=== PATIENT | female | born 1955 | race Caucasian/White ===

== ENCOUNTER → 2017-06-11 | Outpatient (CLI) | payer OTHER ==
[~2017-06-11] MED LIST: CLB200 PO; OXYC5TAB PO; OXYSR10 PO; PARO1TAB27 PO
== END | disposition home or self-care (01) ==
LOC: C.LABMFLN 14:23
PROVIDERS: ATTEND Internal Medicine Cardiovascular Disease
DX: I25.10 Atherosclerotic heart disease of native coronary artery without angina pectoris (principal); E78.5 Hyperlipidemia, unspecified; R06.09 Other forms of dyspnea; R00.2 Palpitations; I25.5 Ischemic cardiomyopathy; R07.89 Other chest pain

== ENCOUNTER → 2017-06-28 | Outpatient (CLI) | payer OTHER ==
[~2017-06-28] MED LIST changes: +PERFLUTREN LIPID MICROSPHERE (DEFINITY) IV ONE; +REGADENOSON 0.4 MG/5 ML SYR ONE
--- NOTE | 2017-06-28 16:11 | ECHOCARDIOGRAM REPORT ---
*NOTICE TO RECEIVING [employer] [employer] This information is strictly Confidential and protected under [place] law. [place] law prohibits you from making any further disclosure of this information unless further disclosure is expressly permitted by the written consent of the person to whom it pertains or is authorized by law. A general authorization for the release of medical or other information is not sufficient for this purpose. Hospital accepts no responsibility if the information is made available to any other person, INCLUDING THE PATIENT. Interpretation Summary * Name: JAVIER PRINCE Study Date: 06/28/2017 02:20 PM BP: 104/66 mmHg * Patient Location: [facility] HR: 64 * : 1955 (M/d/yyyy) Gender: Female Height: 65 in * Age: 62 yrs Ethnicity: CA Weight: 202 lb * Ordering Physician: Jarret Barrera * Referring Physician: Jarret Barrera * Performed By: Marah Santiago RDCS * * Reason For Study: Atypical chest pain, CAD, FISH, ischemic cardiomyopathy, palpitations * BSA: 2.0 m2 * -- Conclusions -- * 1. Normal left ventricular size with mildly reduced systolic function. EF 45-50%. Hypokinesis of the basal lateral and basal inferolateral wall segments. Akinesis of the mid inferolateral and mid to distal lateral wall segments. No left ventricular hypertrophy. Type 2 diastolic dysfunction. * 2. No significant valvular abnormalities visualized. * 3. Technically difficult study, enhanced with IV Definity. * 4. No prior study available for comparison. Procedure Details * A complete two-dimensional transthoracic echocardiogram was performed (2D, M-mode, Doppler and color flow Doppler). * A contrast injection of Definity was performed to improve assessment of LV function. * Contrast was injected into an intravenous site in the left arm. * One vial of Definity ultrasound contrast was diluted in normal saline to a total volume of 10 ml. A total of '3' ml of solution was administered during imaging. * Lot # [id number] of Definity utilized for procedure. * Expiration date 1 JUN 24. * The attending nurse who injected the contrast agent was Dahiana Guerra RN. Left Ventricle * Normal left ventricular size with mildly reduced systolic function. EF 45-50%. Hypokinesis of the basal lateral and basal inferolateral wall segments. Akinesis of the mid inferolateral and mid to distal lateral wall segments. No left ventricular hypertrophy. Type 2 diastolic dysfunction. Right Ventricle * The right ventricle is normal in size and function. * The right ventricular systolic function is normal as assessed by tricuspid annular plane systolic excursion (TAPSE) (normal >1.5 cm). Atria * The left atrial size is normal. * Right atrial size is normal. * There is no evidence of atrial septal defect, but resolution does not allow assessment for a patent foramen ovale. Mitral Valve * The mitral valve is grossly normal. * There is no mitral valve stenosis. * There is trace mitral regurgitation. Tricuspid Valve * The tricuspid valve is not well visualized, but is grossly normal. * There is no tricuspid stenosis. * Significant tricuspid regurgitation is absent. Aortic Valve * The aortic valve is trileaflet. * No hemodynamically significant valvular aortic stenosis. * No aortic regurgitation is present. Pulmonic Valve * The pulmonary valve is inadequately visualized, but the Doppler data is adequate for interpretation. * There is no pulmonic valvular stenosis. * There is no significant pulmonary regurgitation. Great Vessels * The aortic root is normal size. * Ascending aorta of normal dimension Pericardium/Pleural * There is no pericardial effusion. Great Vessels * Normal inferior vena cava size and collapsability with sniff indicates a normal right atrial pressure of 3 mmHg MMode 2D Measurements and Calculations IVSd 0.87 cm LVIDd 4.6 cm LVIDs 3.7 cm LVPWd 0.91 cm IVS/LVPW 0.96 FS 19.3 % EDV(Teich) 95.0 ml ESV(Teich) 57.1 ml EF(Teich) 39.9 % EDV(cubed) 94.4 ml ESV(cubed) 49.6 ml EF(cubed) 47.5 % LV mass(C)d 133.0 grams LV mass(C)dI 67.0 grams/m\S\2 SV(Teich) 37.9 ml SI(Teich) 19.1 ml/m\S\2 SV(cubed) 44.8 ml SI(cubed) 22.6 ml/m\S\2 Ao root diam 2.8 cm Ao root area 6.0 cm\S\2 LA dimension 3.0 cm asc Aorta Diam 2.5 cm LA/Ao 1.1 LVOT diam 2.0 cm LVOT area 3.1 cm\S\2 LVAd ap4 29.6 cm\S\2 LVLd ap4 7.8 cm EDV(MOD-sp4) 92.3 ml EDV(sp4-el) 96.0 ml LVAs ap4 20.3 cm\S\2 LVLs ap4 6.8 cm ESV(MOD-sp4) 51.6 ml ESV(sp4-el) 51.8 ml EF(MOD-sp4) 44.0 % EF(sp4-el) 46.0 % LVAd ap2 29.0 cm\S\2 LVLd ap2 7.4 cm EDV(MOD-sp2) 91.3 ml EDV(sp2-el) 96.3 ml LVAs ap2 17.3 cm\S\2 LVLs ap2 6.4 cm ESV(MOD-sp2) 38.8 ml ESV(sp2-el) 39.8 ml EF(MOD-sp2) 57.5 % EF(sp2-el) 58.7 % LVLd %diff -5.03 % EDV(MOD-bp) 91.8 ml LVLs %diff -5.76 % ESV(MOD-bp) 44.9 ml EF(MOD-bp) 51.1 % SV(MOD-sp4) 40.6 ml SI(MOD-sp4) 20.5 ml/m\S\2 SV(MOD-sp2) 52.5 ml SI(MOD-sp2) 26.4 ml/m\S\2 SV(MOD-bp) 46.9 ml SI(MOD-bp) 23.6 ml/m\S\2 SV(sp4-el) 44.1 ml SI(sp4-el) 22.2 ml/m\S\2 SV(sp2-el) 56.5 ml SI(sp2-el) 28.5 ml/m\S\2 Doppler Measurements and Calculations MV E max monique 86.8 cm/sec MV A max monique 84.9 cm/sec MV E/A 1.0 MV dec time 0.17 sec Ao V2 max 148.0 cm/sec Ao max PG 8.8 mmHg Ao max PG (full) 5.1 mmHg PUSHPA(V,A) 2.0 cm\S\2 PUSHPA(V,D) 2.0 cm\S\2 LV V1 max PG 3.7 mmHg LV V1 max 96.0 cm/sec PA V2 max 97.7 cm/sec PA max PG 3.8 mmHg PA acc slope 661.2 cm/sec\S\2 PA acc time 0.09 sec PA pr(Accel) 39.4 mmHg
--- NOTE | 2017-06-28 17:13 | Myocardial Perfusion Study ---
Myocardial Perfusion Study Rpt Myocardial Perfusion Study Rpt Date of Service 06/28/2017 Myocardial Perfusion Study Rpt Procedure: 1. Myocardial perfusion study performed in multiple views/images 2. Lexiscan pharmacologic stress ECG Indications: 1. Chest pain 2. CAD 3. Dyspnea with exertion 4. Ischemic cardiomyopathy Consent: Informed written consent was obtained prior to the procedure. Ordering physician: Dr. Barrera Procedural details: For the stress portion of the study, Lexiscan 0.4 mg was intravenously administered followed by a saline flush. This was followed by 33.3 mCi of technetium 99m Cardiolite, injected at 1:20 p.m. on 06/28/2017. 30 minutes following the injection, imaging of the heart was performed in multiple projections. For the rest portion of the study, 9.8 mCi technetium 99m Cardiolite was injected intravenously at 11:40 a.m. on 06/28/2017. 1 hour following the injection, imaging of the heart was performed in the same projections. Lexiscan stress ECG: Resting ECG demonstrated: Sinus rhythm at 64 bpm. Low voltage. Possible inferolateral infarct. Maximum heart rate: 96 bpm Resting blood pressure: 104/66 mmHg Maximum blood pressure: 104/66 mmHg Maximal, age-predicted heart rate: 60 % Significant ST changes: None Arrhythmia: None Symptoms: Chest heaviness, nausea, fatigue Findings: Rotating raw imaging demonstrated no significant lung uptake. There is no significant motion artifact. Heart size appeared normal. Myocardial perfusion demonstrated a small area of severely reduced uptake involving the base to distal inferolateral and base to mid lateral wall segments, which appeared fixed in post stress and rest imaging without significant reversibility. Other wall segments appear to have normal myocardial perfusion. Ejection fraction: 47 % Wall motion: Akinesis involving the base to distal inferolateral and base to mid lateral wall segments. Otherwise normal wall motion. No significant transient ischemic dilation. Impression: 1. No ischemic changes suggested on myocardial perfusion study. 2. Circumflex territory infarct. 3. Akinesis of the base to distal inferolateral and base to mid lateral wall segments. 4. Mildly reduced LV systolic function. EF 47%. 5. Chest heaviness reported. 6. Nondiagnostic Lexiscan ECG.
== END | disposition home or self-care (01) ==
LOC: C.NUCL 10:44
PROVIDERS: ATTEND Internal Medicine Cardiovascular Disease
DX: R07.89 Other chest pain (principal); I25.10 Atherosclerotic heart disease of native coronary artery without angina pectoris; R06.09 Other forms of dyspnea; E78.5 Hyperlipidemia, unspecified; I25.5 Ischemic cardiomyopathy; R00.2 Palpitations

== ENCOUNTER 2017-08-15 09:14 | Inpatient (IN) | payer OTHER ==
[2017-08-01 11:04] VITALS: BMI 33.0
--- NOTE | 2017-08-01 11:39 | PAT Medication Instructions ---
Service Date Aug 01, 2017. Current Home Medication List Acetaminophen (Tylenol), 1,000 MG PO QD PRN for Pain Aspirin (Aspirin Ec), 81 MG PO QAM Atorvastatin (Lipitor), 80 MG PO QPM Carvedilol (Coreg), 1 TAB PO BID Nitroglycerin (Nitrostat), 0.4 MG UT PRN Paroxetine (Paxil), 20 MG PO QAM Medication Instructions For Your Scheduled Surgery - Take the following medications the morning of surgery with a sip of water: Paroxetine (Paxil), 20 MG PO QAM Carvedilol (Coreg), 1 TAB PO BID Nitroglycerin (Nitrostat), 0.4 MG UT PRN (if needed) Aspirin (Aspirin Ec), 81 MG PO QAM Acetaminophen (Tylenol), 1,000 MG PO QD PRN for Pain (okay to take up to 4 hours prior to surgery if needed) - Take the following medications as scheduled the night before surgery: Carvedilol (Coreg), 1 TAB PO BID Nitroglycerin (Nitrostat), 0.4 MG UT PRN (if needed) Atorvastatin (Lipitor), 80 MG PO QPM Acetaminophen (Tylenol), 1,000 MG PO QD PRN for Pain (if needed) If you have any questions please call us at [phone] or [phone] or [phone]
--- NOTE | 2017-08-01 12:28 | DIAGNOSTIC IMAGING REPORT ---
TWO VIEW CHEST CLINICAL HISTORY: Preoperative examination. FINDINGS: PA and lateral chest radiographs are compared to study dated 05/05/2015. The PA view is degraded by patient rotation. The cardiomediastinal silhouette is unremarkable. There is atherosclerotic calcification of the thoracic aorta. The lungs and pleural spaces are clear. There is no pneumothorax. The skeletal structures are osteopenic. Degenerative change is noted in the thoracic spine. Fusion hardware is partially imaged in the lumbar spine. A left shoulder arthroplasty is in place. IMPRESSION: No active disease in the chest. Electronically signed by: Chiki Mccray M.D. 08/01/2017 12:27 PM Dictated Date/Time: 08/01/2017 12:26 PM
[2017-08-01 12:34] LABS: BASO % 0.5 %; BASO ABS # 0.03 K/uL (0-0.2); EOS % 1.6 %; HEMATOCRIT 43.6 % (37-47); IG# 0.01 K/uL (0.00-0.02); LYMPH % 30.6 %; LYMPH ABS # 1.87 K/uL (1.2-3.4); MEAN CELL VOLUME 83.8 fL (80-100); MEAN CORPUSCULAR HEMOGLOBIN 28.8 pg (25-34); MEAN CORPUSCULAR HGB CONC 34.4 g/dl (32-36); MONO % 7.5 %; MONO ABS # 0.46 K/uL (0.11-0.59); NEUT % 59.6 %; NEUT ABS # 3.65 K/uL (1.4-6.5); PLATELET COUNT 289 K/uL (130-400); RED CELL DISTRIBUTION WIDTH CV 14.5 % (11.5-14.5); RED CELL DISTRIBUTION WIDTH SD 44.6 fL (36.4-46.3); WHITE BLOOD COUNT 6.12 K/uL (4.8-10.8)
[2017-08-01 12:44] LABS: PTT PATIENT 28.5 SECONDS (21.0-31.0)
[2017-08-01 12:50] LABS: HEMOGLOBIN A1C 5.8 % (4.5-5.6)
[2017-08-01 13:39] LABS: ALBUMIN 4.2 gm/dl (3.4-5.0); CALCIUM 9.4 mg/dl (8.5-10.1); CREATININE 0.81 mg/dl (0.60-1.20); POTASSIUM 4.5 mmol/L (3.5-5.1)
--- NOTE | 2017-08-14 12:28 | HISTORY & PHYSICAL EXAMINATION ---
DATE OF ADMISSION: 08/14/2017 CHIEF COMPLAINT: Left knee pain. HISTORY OF PRESENT ILLNESS: Patient is a 62-year-old female with known severe osteoarthritis about her left knee. She takes Tylenol daily for pain. She has to watch her anti-inflammatory use due to cardiac history. She has pain with activities of daily living. She has pain with prolonged weightbearing and standing activities. She has difficulty with any kneeling, bending, or squatting activities. Due to ongoing pain and disability, she now desires to proceed with left total knee arthroplasty. PAST MEDICAL HISTORY: Coronary artery disease status post MO and cardiac stent placement, hypertension, hypercholesterolemia. PAST SURGICAL HISTORY: , hip replacement, back surgery, shoulder replacement. MEDICATIONS: Paxil 20 mg daily, carvedilol 1 tablet p.o. b.i.d., nitroglycerin 0.4 mg sublingual p.r.n., aspirin 81 mg daily, acetaminophen 1000 mg p.r.n. pain, Lipitor 80 mg q.p.m. ALLERGIES: AMOXICILLIN CAUSES A RASH. SOCIAL HISTORY AND REVIEW OF SYSTEMS: Noncontributory. PHYSICAL EXAMINATION: GENERAL: Well-nourished, well-developed elderly female who appears stated age. HEENT: Normocephalic, atraumatic, extraocular movements intact, oropharynx pink and moist. NECK: Supple without adenopathy. LUNGS: Clear to auscultation bilaterally. HEART: Regular rate and rhythm. ABDOMEN: Soft, nontender, nondistended. EXTREMITIES: The upper extremities are within normal limits. Left knee has a varus alignment. Range of motion from 0-125 degrees. She complains primarily of medial compartment pain. X-RAYS: X-rays were reviewed. She has a varus aligned knee. She has [id number] arthritis of the medial compartment with complete loss of joint space. There are medial osteophytes. She has [id number] degenerative change about the patellofemoral joint with osteophytes. ASSESSMENT: Left knee degenerative joint disease. PLAN: Risks versus benefits were discussed. Consent was obtained. Patient's primary care physician is Dr. Gilmar Fonseca. Her consumer relations specialist is Dr. Barrera. We will proceed with left total knee arthroplasty as indicated.
[2017-08-15] VITALS (10 sets, daily range): BP systolic 99–118; BP diastolic 64–81; PULSE 61–85; TEMP 36.3–36.7; O2SAT 92–99; Ht 165.1 cm; Wt 92.2 kg
[~2017-08-15] VITALS: Ht 165.1 cm; Wt 92.2 kg
[2017-08-15] MEDS: TRANEXAMIC ACID INJ 1,000 MG x 2 Bags IV SCH ×4 (06:00→06:30)
--- NOTE | 2017-08-15 07:22 | History & Physical Bridge Note ---
H&P Re-Evaluation Bridge Note: I have examined the patient, reviewed the History & Physical and in the interval since the performance of the History & Physical I have noted the following changes of clinical significance: No changes noted
[~2017-08-15 09:14] MED LIST changes: +ACET-1256 PO; +ACETAMINOPHEN 500 MG TAB PO SCH; +ASPI81TA28 PO; +ATOR-26 PO; +BUPIVACAINE 0.25% 30 ML VIAL ONE; +BUPIVACAINE 0.5 % 5 MG/1 ML PF 10ML VIAL ONE; +CARV3.122 PO; -CLB200 PO; +CeleBREX 200 MG CAP PO SCH; +DEXAMETHASONE 4 MG TAB PO SCH; +FAMOTIDINE 20 MG TAB PO SCH; +GABAPENTIN 600 MG PO SCH; +LACTATED RINGER'S 1000ML 1,000 ML IV SCH; +LACTATED RINGER'S 1000ML 500 ML IV SCH; +METOCLOPRAMIDE HCL 10 MG TAB PO SCH; +NTRGSL/4 UT; -OXYC5TAB PO; -OXYSR10 PO; -PERFLUTREN LIPID MICROSPHERE (DEFINITY) IV ONE; -REGADENOSON 0.4 MG/5 ML SYR ONE; +ROPIVACAINE 5MG/ML 30 ML 150 MG, BUPIVACAINE 0.5% MPF INJ 30 ML, EpINEphrine HCL INJ 0.... INFIL SCH; +VANCOMYCIN IV 1,500 MG in SODIUM CHLORIDE 0.9% 500ML 500 ML IV SCH
[2017-08-15] MEDS ORDERED: LIDOCAINE HCL 2% 2 ML VIAL (20MG/ML) ONE (09:51)
[2017-08-15] MEDS ORDERED: PROPOFOL IV EMULSION 10 MG/ML 20 ML VIAL IV ONE ×2 (09:51→10:20)
[2017-08-15] MEDS ORDERED: MIDAZOLAM HCL 1 MG/ML 2ML VIAL ONE (09:52)
[2017-08-15] MEDS ORDERED: POVIDONE-IODINE OP SOLN 30 ML BTL ONE (10:58)
[2017-08-15] MEDS ORDERED: ORTHO JOINT ANESTHETIC ONE (10:58)
[2017-08-15] MEDS ORDERED: BACITRACIN 50000 UNIT VIAL ONE (10:58)
[2017-08-15] MEDS ORDERED: ATROPINE SULFATE 0.1 MG/ML 5ML SYR IV PRN (11:45)
[2017-08-15] MEDS ORDERED: PHENYLEPHRINE 100MCG/ML 5ML SYR IV PRN (11:45)
[2017-08-15] MEDS ORDERED: HYDROmorphone INJ 2 MG/ML SYR/VIAL IV PRN (11:45)
[2017-08-15] MEDS ORDERED: KETOROLAC TROMETHAMINE 30 MG/ML VIAL IV. PRN (11:45)
[2017-08-15] MEDS ORDERED: EpHEDrine SULFATE INJ 50 MG/ML AMP IV PRN (11:45)
[2017-08-15] MEDS ORDERED: ONDANSETRON INJ 2 MG/ML 2 ML VIAL IV PRN ×2 (11:45→13:15)
--- NOTE | 2017-08-15 12:31 | [facility] Post Operative Brief Note ---
Immediate Operative Summary Operative Date Aug 15, 2017. Pre-Operative Diagnosis Left knee degenerative joint disease Post-Operative Diagnosis Left knee degenerative joint disease Procedure(s) Performed Left total knee arthroplasty Surgeon Dr. Yoni Busch Digital Ad Trafficker Surgeon(s) Meir Campa PA-C Estimated Blood Loss 10cc Findings Consistent with Post-Op Diagnosis Specimens A. Left knee bone and tissue Anesthesia Type MAC Spinal Regional Complication(s) none Disposition Accompanied Pt To Recover: no Disposition: Recovery Room / PACU
[2017-08-15] MEDS ORDERED: ALUMINUM/MAGNESIUM/SIMETH (MAALOX MAX) 30 ML UDC PO PRN (13:15)
[2017-08-15] MEDS ORDERED: MAGNESIUM HYDROXIDE SUSP 30 ML UDC PO PRN (13:15)
[2017-08-15] MEDS ORDERED: ZOLPIDEM TARTRATE 5 MG TAB PO PRN (13:15)
[2017-08-15] MEDS ORDERED: METOCLOPRAMIDE HCL INJ 5 MG/ML 2 ML VIAL IV PRN (13:15)
[2017-08-15] MEDS ORDERED: VANCOMYCIN CONSULT ACTIVE PRN (13:15)
[2017-08-15] MEDS ORDERED: NITROGLYCERIN 0.4 MG SL PER TAB CHARGE UT SCH (13:15)
[2017-08-15] MEDS ORDERED: MoRPHine SULFATE 4 MG/ML 1 ML CARP\\VIAL IV PRN (13:15)
--- NOTE | 2017-08-15 13:51 | DIAGNOSTIC IMAGING REPORT ---
L KNEE 1 OR 2 VIEWS ROUTINE HISTORY: 62 years-old Female AP/LATERAL IN PACU LEFT KNEE status post left knee total joint arthroplasty. Degenerative joint disease. COMPARISON: None available TECHNIQUE: 2 views of the left knee FINDINGS: Postoperative changes from recent left knee total joint arthroplasty with patellar resurfacing. Expected postsurgical soft tissue swelling and deep tissue air about the left knee with surgical drain in place. Alignment is satisfactory without periprosthetic fracture or retained foreign body. IMPRESSION: Left knee total joint arthroplasty and patellar resurfacing without complication identified. The above report was generated using voice recognition software. It may contain grammatical, syntax or spelling errors. Electronically signed by: Godfrey Pagan M.D. 08/15/2017 1:50 PM Dictated Date/Time: 08/15/2017 1:48 PM
--- NOTE | 2017-08-15 14:14 | Anesthesiology Progress Note ---
Anesthesia Post Op Note Date & Time Aug 15, 2017 at 14:14 Vital Signs Pain Intensity: 0 Vital Signs Past 12 Hours Date Time Temp Pulse Resp B/P (MAP) Pulse Ox O2 Delivery O2 Flow Rate FiO2 08/15/17 14:09 69 16 08/15/17 14:09 69 16 94 08/15/17 14:06 36.5 67 16 111/72 (77) 96 Room Air 08/15/17 14:05 102/83 08/15/17 14:04 68 12 08/15/17 14:04 68 12 96 08/15/17 14:00 104/76 08/15/17 13:59 68 12 08/15/17 13:59 67 12 96 08/15/17 13:55 113/75 08/15/17 13:54 65 12 08/15/17 13:54 65 12 96 08/15/17 13:50 106/80 08/15/17 13:49 62 9 100 08/15/17 13:49 63 9 08/15/17 13:45 106/77 08/15/17 13:44 62 15 08/15/17 13:44 62 15 97 08/15/17 13:40 114/79 08/15/17 13:39 64 13 08/15/17 13:39 65 13 98 08/15/17 13:38 62 12 100 08/15/17 13:38 64 12 08/15/17 13:36 109/82 08/15/17 13:33 66 14 97 08/15/17 13:33 66 14 08/15/17 13:30 108/80 08/15/17 13:28 66 10 08/15/17 13:28 66 10 100 08/15/17 13:27 64 14 08/15/17 13:27 65 14 98 08/15/17 13:26 114/78 08/15/17 13:25 65 12 97 08/15/17 13:25 64 12 08/15/17 13:21 117/79 08/15/17 13:20 64 12 08/15/17 13:20 64 12 97 08/15/17 13:16 117/75 08/15/17 13:15 64 12 98 08/15/17 13:15 64 12 08/15/17 13:11 115/82 08/15/17 13:10 64 11 99 08/15/17 13:10 63 11 08/15/17 13:05 67 16 08/15/17 13:05 66 16 118/79 98 08/15/17 13:05 36.2 65 16 118/79 (86) 98 Room Air 08/15/17 09:53 36.4 66 18 107/79 97 Room Air Notes Mental Status: alert / awake / arousable, participated in evaluation Pt Amnestic to Procedure: Yes Nausea / Vomiting: adequately controlled Pain: adequately controlled Airway Patency, RR, SpO2: stable & adequate BP & HR: stable & adequate Hydration State: stable & adequate Anesthetic Complications: no major complications apparent
--- NOTE | 2017-08-15 15:30 | Medical Consult ---
Consultation Date of Consultation: Aug 15, 2017. Attending Physician: Yoni Busch M.D. Reason for Consultation: Postop medical management History of Present Illness 62-year-old female who is status post left TKA today by Dr. Busch. Postoperatively the patient is doing well. She reports her pain is well controlled. She reports numbness to the bilateral lower extremities postoperatively. She denies chest pain, palpitations, and shortness of breath. No lightheadedness or dizziness. She denies abdominal pain and nausea. She has not voided since surgery. Past Medical/Surgical History Medical Problems: (1) CAD (coronary artery disease) Permanent Comment: 05/2016-STEMI, circumflex stent 2, proximal RCA stent 2, distal RCA stent 1 Status: Chronic (2) Diastolic dysfunction Permanent Comment: Grade 2 per echo 06/2017 Status: Chronic (3) Ischemic cardiomyopathy Permanent Comment: Echo 06/2017 EF 45-50% Status: Chronic Surgical Problems: (1) H/O hemorrhoidectomy Status: Chronic (2) History of shoulder surgery Permanent Comment: Left Status: Chronic (3) History of total right hip replacement Status: Chronic (4) S/P foot surgery, right Status: Chronic (5) S/P lumbar fusion Status: Chronic Family History FH: CAD (coronary artery disease) FATHER Social History Smoking Status: Never Smoker Alcohol Use: none Allergies Coded Allergies: Amoxicillin (Verified Allergy, Mild, RASH, 08/15/17) Lisinopril (Unverified Adverse Reaction, Unknown, HYPOTENSION, 08/15/17) PER CARDIO RECORDS Home Medications Tylenol (Acetaminophen) 500 Mg Tab 1,000 Mg PO QD PRN Lipitor (Atorvastatin Calcium) 80 Mg Tab 80 Mg PO QPM Nitrostat (Nitroglycerin) 0.4 Mg Tab 0.4 Mg UT PRN Coreg (Carvedilol) 3.125 Mg Tab 1 Tab PO BID 30 Days Paxil (Paroxetine HCl) 20 Mg Tab 20 Mg PO QAM Aspirin Ec (Aspirin) 81 Mg Tab 81 Mg PO QAM Current Inpatient Medications Current Inpatient Medications Medications (Trade) Dose Ordered Sig/Anam Route Start Time Stop Time Status Last Admin Dose Admin Ondansetron HCl (Zofran Inj) 4 mg ONE PRN IV 08/15/17 11:45 08/15/17 18:00 Atropine Sulfate (Atropine Sulfate 0.1mg/ml Inj) 0.5 mg Q1M PRN IV 08/15/17 11:45 08/15/17 18:00 Ephedrine Sulfate (EpHEDrine SULFATE INJ) 5 mg Q5M PRN IV 08/15/17 11:45 08/15/17 18:00 Ketorolac Tromethamine (Toradol Inj) 30 mg ONE PRN IV. 08/15/17 11:45 08/15/17 18:00 Hydromorphone HCl (Dilaudid Inj) 0.25 mg Q5M PRN IV 08/15/17 11:45 08/15/17 18:00 Phenylephrine HCl (Jeffrey-Synephrine 500MCG/5ML Syr) 100 mcg Q5M PRN IV 08/15/17 11:45 08/15/17 18:00 Potassium Chloride/Dextrose/ Sod Cl 1,000 ml @ 100 mls/hr Q10H IV 08/15/17 15:30 08/16/17 13:02 Vancomycin HCl 1500 mg/Sodium Chloride 530 ml @ 200 mls/hr Q12H IV 08/15/17 22:00 08/16/17 00:38 Ketorolac Tromethamine (Toradol Inj) 30 mg Q6H IV. 08/15/17 16:00 08/16/17 13:14 Oxycodone HCl (Roxicodone Immediate Rel Tab) 1 TABLET FOR PAIN RATING... Q4H PRN PO 08/15/17 13:15 08/29/17 13:14 Morphine Sulfate (MoRPHine SULFATE INJ) For pain rating 1-5 give 2... Q2HWA PRN IV 08/15/17 13:15 08/29/17 13:14 Acetaminophen (Tylenol Tab) 1,000 mg Q8 PO 08/15/17 16:00 09/14/17 15:59 Magnesium Hydroxide (Milk Of Magnesia Susp) 30 ml Q6H PRN PO 08/15/17 13:15 09/14/17 13:14 Docusate Sodium (coLACE CAP) 100 mg BID PO 08/15/17 21:00 09/14/17 20:59 Diphenhydramine HCl (Benadryl Cap) 25 mg Q8H PRN PO 08/15/17 13:15 09/14/17 13:14 Al Hydrox/Mg Hydrox/Simethicone (Maalox Max Susp) 15 ml Q4H PRN PO 08/15/17 13:15 09/14/17 13:14 Zolpidem Tartrate (Ambien Tab) 5 mg HSZ PRN PO 08/15/17 13:15 09/14/17 13:14 Multivitamins (Multivitamin Tab) 1 tab QAM PO 08/16/17 09:00 09/15/17 08:59 Ondansetron HCl (Zofran Inj) 4 mg Q6H PRN IV 08/15/17 13:15 09/14/17 13:14 Metoclopramide HCl (Reglan Inj) 10 mg Q6H PRN IV 08/15/17 13:15 09/14/17 13:14 Ferrous Gluconate (Ferrous Gluconate Tab) 324 mg TIDM PO 08/15/17 17:45 09/14/17 17:59 Pantoprazole Sodium (Protonix Tab) 40 mg QAM PO 08/16/17 09:00 08/19/17 09:01 Dexamethasone Sodium Phosphate 10 mg/Syringe 2.5 ml @ 1 mls/min TODAY@0730 IV 08/16/17 07:30 08/16/17 07:33 Aspirin (Ecotrin Tab) 81 mg BID PO 08/15/17 21:00 09/14/17 20:59 Atorvastatin Calcium (Lipitor Tab) 80 mg QPM PO 08/15/17 21:00 09/14/17 20:59 Carvedilol (Coreg Tab) 3.125 mg BID PO 08/15/17 21:00 09/14/17 20:59 Nitroglycerin (Nitrostat Tab) 0.4 mg PRN UT 08/15/17 13:15 09/14/17 13:14 Paroxetine HCl (pAXil TAB) 20 mg QAM PO 08/16/17 09:00 09/15/17 08:59 Review of Systems ROS per HPI, all other systems reviewed and negative Physical Exam Date Time Temp Pulse Resp B/P (MAP) Pulse Ox O2 Delivery O2 Flow Rate FiO2 08/15/17 14:31 99 Room Air 08/15/17 14:30 99 Room Air 08/15/17 14:27 36.3 65 16 106/73 (84) 99 Room Air 08/15/17 14:09 69 16 08/15/17 14:09 69 16 94 08/15/17 14:06 36.5 67 16 111/72 (77) 96 Room Air 08/15/17 14:05 102/83 08/15/17 14:04 68 12 08/15/17 14:04 68 12 96 08/15/17 14:00 104/76 08/15/17 13:59 68 12 08/15/17 13:59 67 12 96 08/15/17 13:55 113/75 08/15/17 13:54 65 12 08/15/17 13:54 65 12 96 08/15/17 13:50 106/80 08/15/17 13:49 62 9 100 08/15/17 13:49 63 9 08/15/17 13:45 106/77 08/15/17 13:44 62 15 08/15/17 13:44 62 15 97 08/15/17 13:40 114/79 08/15/17 13:39 64 13 08/15/17 13:39 65 13 98 08/15/17 13:38 62 12 100 08/15/17 13:38 64 12 08/15/17 13:36 109/82 08/15/17 13:33 66 14 97 08/15/17 13:33 66 14 08/15/17 13:30 108/80 08/15/17 13:28 66 10 08/15/17 13:28 66 10 100 08/15/17 13:27 64 14 08/15/17 13:27 65 14 98 08/15/17 13:26 114/78 08/15/17 13:25 65 12 97 08/15/17 13:25 64 12 08/15/17 13:21 117/79 08/15/17 13:20 64 12 08/15/17 13:20 64 12 97 08/15/17 13:16 117/75 08/15/17 13:15 64 12 98 08/15/17 13:15 64 12 08/15/17 13:11 115/82 08/15/17 13:10 64 11 99 08/15/17 13:10 63 11 08/15/17 13:05 67 16 08/15/17 13:05 66 16 118/79 98 08/15/17 13:05 36.2 65 16 118/79 (86) 98 Room Air 08/15/17 09:53 36.4 66 18 107/79 97 Room Air General Appearance: WD/WN, no apparent distress Head: normocephalic, atraumatic Eyes: normal inspection, EOMI, sclerae normal ENT: hearing grossly normal, + pertinent finding (Mucous membranes moist) Neck: supple, no JVD, trachea midline Respiratory/Chest: lungs clear, normal breath sounds, no respiratory distress Cardiovascular: regular rate, rhythm, no edema, normal peripheral pulses Abdomen/GI: normal bowel sounds, non tender, soft, no organomegaly Extremities/Musculoskelatal: + pertinent finding (S/P left knee surgery, surgical dressing dry and intact, drain in place draining bloody drainage, circulation intact to the left lower extremity however sensory and motion still impaired from anesthesia) Neurologic/Psych: no motor/sensory deficits, alert, normal mood/affect, oriented x 3 Skin: normal color, warm/dry Assessment & Plan S/P LEFT TKA - POD#0 - activity and wound care orders as per ortho - pain control with bowel regimen - PT/OT - monitor H/H for acute blood loss anemia and transfuse blood products PRN - EBL 10 cc HISTORY OF CORONARY ARTERY DISEASE -History of STEMI 05/2016 -Currently stable -Continue aspirin, statin, beta-millie ISCHEMIC CARDIOMYOPATHY, DIASTOLIC DYSFUNCTION -EF 45-50%, grade 2 diastolic dysfunction -Not on routine diuretics -Monitor volume status closely DVT PROPHYLAXIS -Aspirin 81 mg twice daily as per orthopedics Attending addendum: The patient was seen and examined in presence of the . She has history of cardiomyopathy and CAD, status post left knee replacement. Complains to have numbness mainly left lower extremity but no other symptoms Denies any chest pain, palpitation, shortness of breath, nausea, vomiting, urinary symptoms. On examination Minimal distress at rest due to left lower extremity numbness and pain Hemodynamically stable Chest clear to auscultate bilaterally Heart S1-S2, no murmur appreciated Abdomen-benign, soft, nontender, bowel sounds present Extremity-trace edema on left Labs and imaging studies including EKG are reviewed Agree with assessment and plan as mentioned above. Dr. Alvin Mills
[2017-08-15] MEDS: D5W AND 1/2NSS + 20MEQ KCL 1,000 ML IV SCH (15:38)
[2017-08-15] MEDS: KETOROLAC TROMETHAMINE 30 MG/ML VIAL IV. SCH ×2 (16:38→21:31)
[2017-08-15] MEDS: ACETAMINOPHEN 500 MG TAB PO SCH ×2 (16:38→21:31)
[2017-08-15] MEDS: FERROUS GLUCONATE 324 MG TAB PO SCH (17:52)
[2017-08-15] MEDS: ASPIRIN 81 MG ECTAB PO SCH (21:23)
[2017-08-15] MEDS: CARVEDILOL 3.125 MG TAB PO SCH (21:23)
[2017-08-15] MEDS: DOCUSATE SODIUM 100 MG CAP PO SCH (21:23)
[2017-08-15] MEDS: ATORVASTATIN 40 MG TAB PO SCH (21:24)
[2017-08-15] MEDS ORDERED: VANCOMYCIN IV 1,500 MG in SODIUM CHLORIDE 0.9% 500ML 500 ML IV SCH (22:00)
[2017-08-16] MEDS: D5W AND 1/2NSS + 20MEQ KCL 1,000 ML IV SCH (01:32)
[2017-08-16 03:34] VITALS: BP 111/71; PULSE 71; TEMP 36.5; O2SAT 96
[2017-08-16] MEDS: KETOROLAC TROMETHAMINE 30 MG/ML VIAL IV. SCH ×2 (03:48→09:05)
[2017-08-16] MEDS: ACETAMINOPHEN 500 MG TAB PO SCH ×3 (05:40→21:35)
[2017-08-16 06:15] LABS: HEMATOCRIT 34.8 % (37-47); HEMOGLOBIN 11.9 g/dL (12.0-16.0); MEAN CELL VOLUME 83.3 fL (80-100); MEAN CORPUSCULAR HEMOGLOBIN 28.5 pg (25-34); MEAN CORPUSCULAR HGB CONC 34.2 g/dl (32-36); MEAN PLATELET VOLUME 9.2 fL (7.4-10.4); PLATELET COUNT 233 K/uL (130-400); RED CELL DISTRIBUTION WIDTH CV 14.1 % (11.5-14.5); RED CELL DISTRIBUTION WIDTH SD 43.1 fL (36.4-46.3); WHITE BLOOD COUNT 11.96 K/uL (4.8-10.8)
[2017-08-16 06:45] LABS: CALCIUM 8.3 mg/dl (8.5-10.1); CREATININE 0.89 mg/dl (0.60-1.20); POTASSIUM 4.3 mmol/L (3.5-5.1)
[2017-08-16 07:07] VITALS: BP 129/84; PULSE 69; TEMP 36.4; O2SAT 98
[2017-08-16] MEDS ORDERED: DEXAMETHASONE INJ 10 MG in SYRINGE 0 ML IV SCH (07:30)
--- NOTE | 2017-08-16 07:39 | Orthopedic Progress Note ---
Orthopedic Progress Note Date of Service Aug 16, 2017. Subjective Post OP Day: 1 Reports: feeling well Objective dressing C/D/I (Hemovac d/c'd) Pt with no active motion left ankle, toes/foot numb Date Time Temp Pulse Resp B/P (MAP) Pulse Ox O2 Delivery O2 Flow Rate FiO2 08/16/17 07:07 36.4 69 17 129/84 (99) 98 Room Air 08/16/17 03:34 36.5 71 16 111/71 (84) 96 Room Air 08/16/17 00:15 Room Air 08/15/17 23:06 36.7 72 16 103/68 (80) 92 Room Air 08/15/17 21:20 85 16 108/70 (83) 95 Room Air 08/15/17 19:35 36.6 79 16 99/64 (76) 93 Room Air 08/15/17 17:09 36.5 68 16 101/69 (80) 95 Room Air 08/15/17 15:58 36.3 62 16 114/79 (91) 96 Room Air 08/15/17 15:43 Room Air 08/15/17 15:29 36.4 61 16 118/81 (93) 98 Room Air 08/15/17 14:31 99 Room Air 08/15/17 14:30 99 Room Air 08/15/17 14:27 36.3 65 16 106/73 (84) 99 Room Air 08/15/17 14:09 69 16 08/15/17 14:09 69 16 94 08/15/17 14:06 36.5 67 16 111/72 (77) 96 Room Air 08/15/17 14:05 102/83 08/15/17 14:04 68 12 08/15/17 14:04 68 12 96 08/15/17 14:00 104/76 08/15/17 13:59 68 12 08/15/17 13:59 67 12 96 08/15/17 13:55 113/75 08/15/17 13:54 65 12 08/15/17 13:54 65 12 96 08/15/17 13:50 106/80 08/15/17 13:49 62 9 100 08/15/17 13:49 63 9 08/15/17 13:45 106/77 08/15/17 13:44 62 15 08/15/17 13:44 62 15 97 08/15/17 13:40 114/79 08/15/17 13:39 64 13 08/15/17 13:39 65 13 98 08/15/17 13:38 62 12 100 08/15/17 13:38 64 12 08/15/17 13:36 109/82 08/15/17 13:33 66 14 97 08/15/17 13:33 66 14 08/15/17 13:30 108/80 08/15/17 13:28 66 10 08/15/17 13:28 66 10 100 08/15/17 13:27 64 14 08/15/17 13:27 65 14 98 08/15/17 13:26 114/78 08/15/17 13:25 65 12 97 08/15/17 13:25 64 12 08/15/17 13:21 117/79 08/15/17 13:20 64 12 08/15/17 13:20 64 12 97 08/15/17 13:16 117/75 08/15/17 13:15 64 12 98 08/15/17 13:15 64 12 08/15/17 13:11 115/82 08/15/17 13:10 64 11 99 08/15/17 13:10 63 11 08/15/17 13:05 67 16 08/15/17 13:05 66 16 118/79 98 08/15/17 13:05 36.2 65 16 118/79 (86) 98 Room Air 08/15/17 09:53 36.4 66 18 107/79 97 Room Air Laboratory Results 24 Hours: Test 08/16/17 06:02 Hematocrit 34.8 % Hemoglobin 11.9 g/dL Assessment & Plan Assessment: 62 yo female stable POD #1 s/p left TKA, footdrop noted Plan: 1. Med management 2. DVT prophylaxis- ASA, SCDs 3. PT/OT 4. D/C planning- home w/ HH vs OPPT
--- NOTE | 2017-08-16 07:41 | Discharge Instructions ---
Discharge Instructions Date of Service Aug 16, 2017. Admission Reason for Admission: Left Knee Osteoarthritis Discharge Discharge Diagnosis / Problem: Left knee arthritis Discharge Goals Goal(s): Decrease discomfort, Improve function Activity Recommendations Activity Limitations: as noted below Weightbearing Status: Left weightbearing (as tolerated) . Instructions / Follow-Up Instructions / Follow-Up ACTIVITY RECOMMENDATIONS: SELF CARE INSTRUCTIONS AFTER TOTAL KNEE REPLACEMENT A. You may need to continue a physical therapy program after discharge from the hospital. There are several options available to you. Your doctor will assist you in selecting the best one for you. 1. An out-patient facility 2 to 3 times a week for therapy or home therapy. 2. Continue working on all exercises taught to you in the hospital. Your goals should be to increase bending of your knee to 90 degrees and beyond and to fully straighten your knee. B. You may progress at your own pace from walking with a walker or crutches to a cane; then to no assistive devices. C. Make walking a part of your daily routine. Be up as much as comfortable with rest periods throughout the day. Rest with leg elevation is very important. Use the ice wrap frequently for the first 3-4 weeks. D. There are no restrictions on activities. You may ride in a car, shop, participate in client services assistant and all social activities. E. Wear the long elastic stockings (TOY hose) 20 hours a day for 2 weeks after surgery. They can be removed several times a day for laundering and for a bath. F. You may shower, no tub baths until cleared by your doctor. SPECIAL CARE INSTRUCTIONS: VERY IMPORTANT TO READ AND REVIEW A. There are a few signs you need to watch for after you are home. Call [facility] if you notice any of the followin. Increased severe knee pain. Some pain is expected especially when you exercise. 2. Increased swelling in your leg or knee; pain or swelling of the calf muscle in either lower leg. 3. Any fluid drainage from the incision. 4. Shortness of breath or chest pain. B. Please call [facility] at if you have any concerns or questions about your operation or recovery. The doctor or his nurse will return your call promptly. C. You must take antibiotics before dental work, bladder, bowel or other surgery. Your doctor will provide you with a permanent care to carry describing this precaution. IMPORTANT: * REMEMBER TO TAKE ASPIRIN, 81 MG, TWICE DAILY FOR 4 WEEKS UNLESS OTHERWISE DIRECTED. THIS IS YOUR BLOOD THINNER. * HIGH RISK PATIENTS MAY BE PRESCRIBED A STRONGER BLOOD THINNER. THIS WILL BE PROVIDED AT DISCHARGE. * CALL IF INCREASED PAIN, REDNESS, DRAINAGE OR FEVER GREATER THAT 101. * WEAR TOY HOSE 20 HOURS PER DAY FOR 2 WEEKS. Silverlon- This is a large adhesive bandage that contains silver ions. This helps your incision heal by fighting off bacteria and protecting it from the outside environment. You are permitted to shower with this dressing. This will remain on your incision for 7 days and then should be removed. Some visible blood or drainage through the dressing window is normal. If there is significant drainage or leaking noted before the 7 days notify your doctor's office immediately. Once removed, keep incision clean and dry. If there is any drainage or redness noted, please call your surgeon. When removing Silverlon, leave underlying Zipline closure in place until follow- up with MD FOLLOW UP VISIT: If appointment is not already scheduled: Please call [facility] to make a follow-up appointment for 2 weeks after your surgery at . Current Hospital Diet Patient's current hospital diet: Regular Diet Discharge Diet Recommended Diet: Regular Diet Procedures Procedures Performed: Left total knee arthroplasty Pending Studies Studies pending at discharge: no Laboratory Results Hemoglobin A1c Test 08/01/17 11:45 Range/Units Estimated Average Glucose 120 mg/dl Hemoglobin A1c 5.8 H 4.5-5.6 % Medical Emergencies . Who to Call and When: Medical Emergencies: If at any time you feel your situation is an emergency, please call 911 immediately. . Non-Emergent Contact Non-Emergency issues call your: Surgeon Call Non-Emergent contact if: temperature is above 101.5, your pain is not controlled, wound has increased drainage, wound has increased redness . "Provider Documentation" section prepared by Meir Campa PA-C. . [facility] Monitoring Program Search Results: patient reviewed within database, no issues identified
--- NOTE | 2017-08-16 08:35 | Anesthesiology Progress Note ---
Anesthesia Post Op Note Date & Time Aug 16, 2017 at 08:35 Vital Signs Pain Intensity: 4.0 Vital Signs Past 12 Hours Date Time Temp Pulse Resp B/P (MAP) Pulse Ox O2 Delivery O2 Flow Rate FiO2 08/16/17 08:09 Room Air 08/16/17 07:07 36.4 69 17 129/84 (99) 98 Room Air 08/16/17 03:34 36.5 71 16 111/71 (84) 96 Room Air 08/16/17 00:15 Room Air 08/15/17 23:06 36.7 72 16 103/68 (80) 92 Room Air 08/15/17 21:20 85 16 108/70 (83) 95 Room Air Notes Mental Status: alert / awake / arousable, participated in evaluation Pt Amnestic to Procedure: Yes Nausea / Vomiting: adequately controlled Pain: adequately controlled Airway Patency, RR, SpO2: stable & adequate BP & HR: stable & adequate Hydration State: stable & adequate Neuraxial Anesthesia: sensory block resolved Anesthetic Complications: no major complications apparent
[2017-08-16] MEDS: FERROUS GLUCONATE 324 MG TAB PO SCH ×3 (08:38→18:12)
[2017-08-16] MEDS: CARVEDILOL 3.125 MG TAB PO SCH ×2 (08:38→20:59)
[2017-08-16] MEDS: ASPIRIN 81 MG ECTAB PO SCH ×2 (08:38→20:59)
[2017-08-16] MEDS: PAROXETINE 20 MG TAB PO SCH (08:39)
[2017-08-16] MEDS: PANTOprazole SOD 40 MG TAB PO SCH (08:39)
[2017-08-16] MEDS: MULTIVITAMIN TAB PO SCH (08:39)
[2017-08-16] MEDS: DOCUSATE SODIUM 100 MG CAP PO SCH ×2 (08:49→20:59)
[2017-08-16 15:20] VITALS: BP 111/71; PULSE 73; TEMP 36.5; O2SAT 99
[2017-08-16] MEDS: OXYCODONE HCL IR 5 MG TAB (IMMEDIATE RELEASE) PO PRN ×2 (15:46→21:34)
--- NOTE | 2017-08-16 17:37 | Progress Note ---
Subjective Date of Service: Aug 16, 2017. Subjective Pt evaluation today including: conversation w/ patient, physical exam, lab review, review of studies, review of inpatient medication list Saw/examined the patient in room 322 No problems/issues to note, moving L toes well, as earlier she was having trouble Review of Systems Musculoskeletal: No joint pain, No muscle pain, No swelling, No calf pain Medications Current Inpatient Medications Medications (Trade) Dose Ordered Sig/Anam Route Start Time Stop Time Status Last Admin Dose Admin Oxycodone HCl (Roxicodone Immediate Rel Tab) 1 TABLET FOR PAIN RATING... Q4H PRN PO 08/15/17 13:15 08/29/17 13:14 08/16/17 15:46 5 MG Morphine Sulfate (MoRPHine SULFATE INJ) For pain rating 1-5 give 2... Q2HWA PRN IV 08/15/17 13:15 08/29/17 13:14 Acetaminophen (Tylenol Tab) 1,000 mg Q8 PO 08/15/17 16:00 09/14/17 15:59 08/16/17 13:45 1,000 MG Magnesium Hydroxide (Milk Of Magnesia Susp) 30 ml Q6H PRN PO 08/15/17 13:15 09/14/17 13:14 Docusate Sodium (coLACE CAP) 100 mg BID PO 08/15/17 21:00 09/14/17 20:59 08/16/17 08:49 100 MG Diphenhydramine HCl (Benadryl Cap) 25 mg Q8H PRN PO 08/15/17 13:15 09/14/17 13:14 Al Hydrox/Mg Hydrox/Simethicone (Maalox Max Susp) 15 ml Q4H PRN PO 08/15/17 13:15 09/14/17 13:14 Zolpidem Tartrate (Ambien Tab) 5 mg HSZ PRN PO 08/15/17 13:15 09/14/17 13:14 Multivitamins (Multivitamin Tab) 1 tab QAM PO 08/16/17 09:00 09/15/17 08:59 08/16/17 08:39 1 TAB Ondansetron HCl (Zofran Inj) 4 mg Q6H PRN IV 08/15/17 13:15 09/14/17 13:14 Metoclopramide HCl (Reglan Inj) 10 mg Q6H PRN IV 08/15/17 13:15 09/14/17 13:14 Ferrous Gluconate (Ferrous Gluconate Tab) 324 mg TIDM PO 08/15/17 17:45 09/14/17 17:59 08/16/17 12:46 324 MG Pantoprazole Sodium (Protonix Tab) 40 mg QAM PO 08/16/17 09:00 08/19/17 09:01 08/16/17 08:39 40 MG Aspirin (Ecotrin Tab) 81 mg BID PO 08/15/17 21:00 09/14/17 20:59 08/16/17 08:38 81 MG Atorvastatin Calcium (Lipitor Tab) 80 mg QPM PO 08/15/17 21:00 09/14/17 20:59 08/15/17 21:24 80 MG Carvedilol (Coreg Tab) 3.125 mg BID PO 08/15/17 21:00 09/14/17 20:59 08/16/17 08:38 3.125 MG Nitroglycerin (Nitrostat Tab) 0.4 mg PRN UT 08/15/17 13:15 09/14/17 13:14 Paroxetine HCl (pAXil TAB) 20 mg QAM PO 08/16/17 09:00 09/15/17 08:59 08/16/17 08:39 20 MG Objective Vital Signs Date Time Temp Pulse Resp B/P (MAP) Pulse Ox O2 Delivery O2 Flow Rate FiO2 08/16/17 15:20 36.5 73 20 111/71 (84) 99 Room Air 08/16/17 08:09 Room Air 08/16/17 07:07 36.4 69 17 129/84 (99) 98 Room Air 08/16/17 03:34 36.5 71 16 111/71 (84) 96 Room Air 08/16/17 00:15 Room Air 08/15/17 23:06 36.7 72 16 103/68 (80) 92 Room Air 08/15/17 21:20 85 16 108/70 (83) 95 Room Air 08/15/17 19:35 36.6 79 16 99/64 (76) 93 Room Air Physical Exam General Appearance: no apparent distress Respiratory/Chest: lungs clear, normal breath sounds, no respiratory distress, no accessory muscle use Cardiovascular: regular rate, rhythm, no edema, no murmur Extremities: + pertinent finding (moving L toes well) Laboratory Results Last 24 Hours Test 08/16/17 06:02 White Blood Count 11.96 K/uL Red Blood Count 4.18 M/uL Hemoglobin 11.9 g/dL Hematocrit 34.8 % Mean Corpuscular Volume 83.3 fL Mean Corpuscular Hemoglobin 28.5 pg Mean Corpuscular Hemoglobin Concent 34.2 g/dl RDW Standard Deviation 43.1 fL RDW Coefficient of Variation 14.1 % Platelet Count 233 K/uL Mean Platelet Volume 9.2 fL Sodium Level 137 mmol/L Potassium Level 4.3 mmol/L Chloride Level 110 mmol/L Carbon Dioxide Level 23 mmol/L Anion Gap 4.0 mmol/L Blood Urea Nitrogen 19 mg/dl Creatinine 0.89 mg/dl Est Creatinine Clear Calc Drug Dose 75.4 ml/min Estimated GFR () 81.6 Estimated GFR (Non- 70.4 BUN/Creatinine Ratio 20.8 Random Glucose 185 mg/dl Calcium Level 8.3 mg/dl Assessment and Plan This is a 62 year old female with a PMH of CAD, ischemic cardiomyopathy, systolic CHF, diastolic CHF - presents for a L TKA S/p L TKA - POD #1 - doing well, pain free - working with PT/OT - acute expected blood loss anemia - other management as per ortho Hx. of CAD - STEMI in 2017 - no issues currently; continue current regimen Ischemic Cardiomyopathy Mixed Systolic-Diastolic CHF - EF 45-50%, grade 2 diastolic dysfunction - currently euvolemic DVT ppx - ASA 81 mg BID as per ortho FULL CODE
[2017-08-16] MEDS: ATORVASTATIN 40 MG TAB PO SCH ×2 (20:59→21:34)
[2017-08-16 23:46] VITALS: BP 122/76; PULSE 65; TEMP 36.4; O2SAT 97
[2017-08-17] MEDS: ACETAMINOPHEN 500 MG TAB PO SCH ×2 (06:07→13:18)
[2017-08-17 06:49] VITALS: BP 116/74; PULSE 65; TEMP 36.3; O2SAT 98
[2017-08-17] MEDS: MULTIVITAMIN TAB PO SCH (09:11)
[2017-08-17] MEDS: PAROXETINE 20 MG TAB PO SCH (09:11)
[2017-08-17] MEDS: OXYCODONE HCL IR 5 MG TAB (IMMEDIATE RELEASE) PO PRN ×2 (09:11→13:18)
[2017-08-17] MEDS: PANTOprazole SOD 40 MG TAB PO SCH (09:11)
[2017-08-17] MEDS: FERROUS GLUCONATE 324 MG TAB PO SCH ×2 (09:11→13:17)
[2017-08-17] MEDS: ASPIRIN 81 MG ECTAB PO SCH (09:43)
[2017-08-17] MEDS: CARVEDILOL 3.125 MG TAB PO SCH (09:43)
[2017-08-17] MEDS: DOCUSATE SODIUM 100 MG CAP PO SCH (09:43)
--- NOTE | 2017-08-17 10:54 | Progress Note ---
Subjective Date of Service: Aug 17, 2017. Subjective Pt evaluation today including: conversation w/ patient, physical exam, lab review, review of studies, review of inpatient medication list Saw/examined the patient in room 322 She's doing well Ambulating with walker L knee; wound is open and draining; as per nursing, wound vac is ordered Review of Systems Constitutional: No fever, No chills Respiratory: No cough, No sputum, No shortness of breath Cardiac: No chest pain Abdomen: No pain, No nausea, No vomiting, No diarrhea Heme: No abnormal bleeding/bruising Medications Current Inpatient Medications Medications (Trade) Dose Ordered Sig/Anam Route Start Time Stop Time Status Last Admin Dose Admin Oxycodone HCl (Roxicodone Immediate Rel Tab) 1 TABLET FOR PAIN RATING... Q4H PRN PO 08/15/17 13:15 08/29/17 13:14 08/17/17 09:11 10 MG Morphine Sulfate (MoRPHine SULFATE INJ) For pain rating 1-5 give 2... Q2HWA PRN IV 08/15/17 13:15 08/29/17 13:14 Acetaminophen (Tylenol Tab) 1,000 mg Q8 PO 08/15/17 16:00 09/14/17 15:59 08/17/17 06:07 1,000 MG Magnesium Hydroxide (Milk Of Magnesia Susp) 30 ml Q6H PRN PO 08/15/17 13:15 09/14/17 13:14 Docusate Sodium (coLACE CAP) 100 mg BID PO 08/15/17 21:00 09/14/17 20:59 08/17/17 09:43 100 MG Diphenhydramine HCl (Benadryl Cap) 25 mg Q8H PRN PO 08/15/17 13:15 09/14/17 13:14 Al Hydrox/Mg Hydrox/Simethicone (Maalox Max Susp) 15 ml Q4H PRN PO 08/15/17 13:15 09/14/17 13:14 Zolpidem Tartrate (Ambien Tab) 5 mg HSZ PRN PO 08/15/17 13:15 09/14/17 13:14 Multivitamins (Multivitamin Tab) 1 tab QAM PO 08/16/17 09:00 09/15/17 08:59 08/17/17 09:11 1 TAB Ondansetron HCl (Zofran Inj) 4 mg Q6H PRN IV 08/15/17 13:15 09/14/17 13:14 Metoclopramide HCl (Reglan Inj) 10 mg Q6H PRN IV 08/15/17 13:15 09/14/17 13:14 Ferrous Gluconate (Ferrous Gluconate Tab) 324 mg TIDM PO 08/15/17 17:45 09/14/17 17:59 08/17/17 09:11 324 MG Pantoprazole Sodium (Protonix Tab) 40 mg QAM PO 08/16/17 09:00 08/19/17 09:01 08/17/17 09:11 40 MG Aspirin (Ecotrin Tab) 81 mg BID PO 08/15/17 21:00 09/14/17 20:59 08/17/17 09:43 81 MG Atorvastatin Calcium (Lipitor Tab) 80 mg QPM PO 08/15/17 21:00 09/14/17 20:59 08/16/17 21:34 80 MG Carvedilol (Coreg Tab) 3.125 mg BID PO 08/15/17 21:00 09/14/17 20:59 08/17/17 09:43 3.125 MG Nitroglycerin (Nitrostat Tab) 0.4 mg PRN UT 08/15/17 13:15 09/14/17 13:14 Paroxetine HCl (pAXil TAB) 20 mg QAM PO 08/16/17 09:00 09/15/17 08:59 08/17/17 09:11 20 MG Objective Vital Signs Date Time Temp Pulse Resp B/P (MAP) Pulse Ox O2 Delivery O2 Flow Rate FiO2 08/17/17 06:49 36.3 65 16 116/74 (88) 98 Room Air 08/17/17 00:15 Room Air 08/16/17 23:46 36.4 65 16 122/76 (91) 97 Room Air 08/16/17 15:45 Room Air 08/16/17 15:20 36.5 73 20 111/71 (84) 99 Room Air Physical Exam General Appearance: no apparent distress Respiratory/Chest: no respiratory distress, no accessory muscle use Cardiovascular: regular rate, rhythm, no edema, no murmur Extremities: + pertinent finding (L knee is wrapped, blood draining) Assessment and Plan This is a 62 year old female with a PMH of CAD, ischemic cardiomyopathy, systolic CHF, diastolic CHF - presents for a L TKA S/p L TKA 08/17 - POD #2 - incision vac being placed today - PT/OT - plan for d/c to home with health services 08/16 - POD #1 - doing well, pain free - working with PT/OT - acute expected blood loss anemia - other management as per ortho Hx. of CAD - STEMI in 2017 - no issues currently; continue current regimen Ischemic Cardiomyopathy Mixed Systolic-Diastolic CHF - EF 45-50%, grade 2 diastolic dysfunction - currently euvolemic DVT ppx - ASA 81 mg BID as per ortho FULL CODE
--- NOTE | 2017-08-17 11:16 | Orthopedic Progress Note ---
Orthopedic Progress Note Date of Service Aug 17, 2017. Subjective Post OP Day: 2 Reports: feeling well, Denies: complaints Objective calves soft nontender, N/V intact, capillary refill less than 2 sec. Had a little bit of bloody drainage from the distal aspect of the dressing after therapy Date Time Temp Pulse Resp B/P (MAP) Pulse Ox O2 Delivery O2 Flow Rate FiO2 08/17/17 06:49 36.3 65 16 116/74 (88) 98 Room Air 08/17/17 00:15 Room Air 08/16/17 23:46 36.4 65 16 122/76 (91) 97 Room Air 08/16/17 15:45 Room Air 08/16/17 15:20 36.5 73 20 111/71 (84) 99 Room Air Assessment & Plan Assessment: 62 yo female stable POD #2 s/p left TKA, footdrop improved Plan: 1. Med management 2. DVT prophylaxis- ASA, SCDs 3. PT/OT 4. D/C planning- home w/ HH vs OPPT Her Silverlon dressing need to be changed secondary to some increased bloody drainage. Will monitor this the rest of the afternoon if he continues to be drainage from the Silverlon that we may change this to a gauze type dressing. She should be able to be discharged today.
[2017-08-17 13:28] VITALS: BP 116/74; PULSE 65; TEMP 36.3; O2SAT 98
[2017-08-17] MEDS ORDERED: ASPI-320 PO (13:51)
[2017-08-17] MEDS ORDERED: ACET-24 PO (13:51)
[2017-08-17] MEDS ORDERED: ONDA-170 PO (13:51)
[2017-08-17] MEDS ORDERED: RXC5 PO (13:51)
[2017-08-17] MEDS ORDERED: CLC100 PO (13:51)
--- NOTE | 2017-08-28 14:31 | OPERATIVE REPORT ---
DATE OF OPERATION: 08/15/2017 PREOPERATIVE DIAGNOSIS: Osteoarthritis left knee. POSTOPERATIVE DIAGNOSIS: Osteoarthritis left knee. PROCEDURE: Left total knee arthroplasty. SURGEON: Yoni Busch MD INSPECTOR FUEL HOSE: Meir Campa PA-C. ANESTHESIA: Spinal. COMPLICATIONS: None. OPERATION AND FINDINGS: Femoral size 5, tibia size 4, tibial poly 9, patella size 36. PROCEDURE: Following induction of spinal anesthesia, the patient's left leg was prepped and draped in the usual sterile manner. Limb was exsanguinated with an Esmarch bandage and tourniquet was inflated to 350 mmHg. A longitudinal incision was made anteriorly. Subcutaneous tissue was sharply dissected. Electrocautery was used for hemostasis. Prepatellar bursa was incised and median parapatellar incision was performed. Patella was everted and the knee was flexed. Fat pad was removed to aid in visualization and the anterior and posterior cruciate ligaments were removed. The medial face of the tibia was cleared of soft tissue first with a Bovie and a Townsend elevator. This tissue was retracted posteriorly using a blunt Hohmann. A Shook retractor was used to expose the synovium above on the anterior aspect of the femur and this was removed down to bone. The PSI guide was placed on the distal femur and two pins were placed anteriorly and kept in position and two additional pins were placed distally and removed. The distal femoral cutting block was placed in position and the distal femoral cut was used in the +0 setting. Next, the cutting block was removed and the size 5 block was placed in the distal end of the femur. Care was taken to ensure appropriate external rotation and feeler gauge was used to ensure no notching would occur. The femoral block was centered on the distal femur and in the medial and lateral direction and was fixed using two bone screws. The gold pins were then removed. The oscillating saw was used to create the bone cuts and the distal femoral cutting block was removed and the reciprocating saw was used to further trim the femoral cuts as well as a deep in the area for the trochlear groove. Next, posterior condyle remnants were removed. Following this, a meniscal clamp and knife were utilized to remove the anterior portion of both medial and lateral meniscus. The proximal tibia PSI guide was placed into position and the proximal tibial cutting guide was screwed into position. The extra medullary alignment guide was utilized to ensure appropriate alignment. The proximal tibia was cut and the proximal tibial cutting block was removed and this bone fragment was removed. The appropriate guide was used to perform the notch cut on the distal femur and a lamina music industry internship and a cochlear knife were utilized to finish both medial and lateral meniscectomies to remove any remnants of the posterior or anterior cruciate ligaments. Following this, the distal femoral component was impacted into position and blunt Juice was used to sublux the tibia anteriorly. The proximal tibia was sized and a tibial size 4 tibial tray was chosen as the size to be used. This was put into position and appropriate external rotation and a double check with extramedullary alignment guide was performed. The canal for the tibial stem was prepared first with a 17 mm drill and then the punch and a mallet and the trial tibial poly was placed. A tibial poly 9 was chosen the size to be used. It was brought to extension and the patella was prepared with the patellar reamer. A patella size 36 component was chosen the size to be used. The trial component was placed and knee was taken through a full range of motion and there was found to be no lateral subluxation of the tibia. No lateral release was required. The trials were all removed. The final components were obtained and assembled. Cement was mixed. The knee was thoroughly irrigated and the ortho mix was injected about the knee joint. The final components were cemented into position. After thoroughly suctioning and drying the bone ends, all excess cement was removed. The knee was held in extension while the cement hardened. The wound was irrigated and closed over a Hemovac drain. #1 Vicryl was used to close the extensor mechanism. Subcutaneous tissues closed using 0 Dexon. Skin was closed with marcial. Sterile dressing of Adaptic, 4 x 4's, sterile Webril, and Wilfredo was applied. The patient tolerated the procedure well. Due to the complex nature of the procedure, the entire surgery was performed with the operational assistance of Meir Campa PA-C. The assistant front desk manager, under direct supervision, was involved in the actual performance of all aspects of the surgical procedure including hemostasis, tissue retraction and incision, instrument management, patient positioning, and wound closure. DISPOSITION: Recovery room stable. I attest to the content of the Intraoperative Record and any orders documented therein. Any exception s are noted below.
--- NOTE | 2017-08-28 23:16 | DISCHARGE SUMMARY ---
CHIEF COMPLAINT: Left knee pain. Please see complete history and physical examination. HOSPITAL COURSE: The patient underwent left total knee arthroplasty without complication. She tolerated the procedure well and was discharged to recovery room in stable condition. Her postoperative course was relatively uneventful. Her postoperative pain was reasonably well controlled with a combination of spinal anesthesia, adductor canal block, intraoperative joint injection, IV, and oral pain medications. She was started on aspirin for DVT prophylaxis. She also utilized TOY stockings and SCDs for additional prophylaxis. Her H and H was stable and not require transfusion. A medical consult was asked for to assist in her postoperative medical management, the patient did not have any significant postoperative medical issues. She tolerated postop physical therapy reasonably well. She was bending her knee and ambulating appropriately. She was discharged home on postop day 2. She will continue physical therapy at home. She will continue her aspirin for DVT prophylaxis and follow up in our office in approximately 10-14 days for initial postop evaluation.
== END 2017-08-17 14:25 | disposition home health service (06) | DRG 470 ==
LOC: C.ACU 09:14 → C.3E 09:25 → ENRESERV 14:05
PROC: 0SRD0J9 Replacement of Left Knee Joint with Synthetic Substitute, Cemented, Open Approach (ICD-10-PCS; principal; 2017-08-15 12:00)
DX: M17.12 Unilateral primary osteoarthritis, left knee (principal); I50.40 Unspecified combined systolic (congestive) and diastolic (congestive) heart failure; I25.10 Atherosclerotic heart disease of native coronary artery without angina pectoris; I11.0 Hypertensive heart disease with heart failure; I25.5 Ischemic cardiomyopathy; Z96.649 Presence of unspecified artificial hip joint; E78.00 Pure hypercholesterolemia, unspecified; Z88.1 Allergy status to other antibiotic agents; Z96.619 Presence of unspecified artificial shoulder joint; I25.2 Old myocardial infarction

== ENCOUNTER → 2017-12-16 | Outpatient (CLI) | payer OTHER ==
[~2017-12-16] MED LIST changes: -ACET-1256 PO; +ACET-24 PO; -ACETAMINOPHEN 500 MG TAB PO SCH; +ASPI-320 PO; -ASPI81TA28 PO; -BUPIVACAINE 0.25% 30 ML VIAL ONE; -BUPIVACAINE 0.5 % 5 MG/1 ML PF 10ML VIAL ONE; +CLC100 PO; -CeleBREX 200 MG CAP PO SCH; -DEXAMETHASONE 4 MG TAB PO SCH; -FAMOTIDINE 20 MG TAB PO SCH; -GABAPENTIN 600 MG PO SCH; -LACTATED RINGER'S 1000ML 1,000 ML IV SCH; -LACTATED RINGER'S 1000ML 500 ML IV SCH; -METOCLOPRAMIDE HCL 10 MG TAB PO SCH; +ONDA-170 PO; -ROPIVACAINE 5MG/ML 30 ML 150 MG, BUPIVACAINE 0.5% MPF INJ 30 ML, EpINEphrine HCL INJ 0.... INFIL SCH; +RXC5 PO; -VANCOMYCIN IV 1,500 MG in SODIUM CHLORIDE 0.9% 500ML 500 ML IV SCH
[2017-12-16 12:41] LABS: HEMATOCRIT 44.5 % (37-47); HEMOGLOBIN 14.7 g/dL (12.0-16.0); MEAN CELL VOLUME 84.1 fL (80-100); MEAN CORPUSCULAR HEMOGLOBIN 27.8 pg (25-34); MEAN PLATELET VOLUME 10.4 fL (7.4-10.4); PLATELET COUNT 307 K/uL (130-400); RED CELL DISTRIBUTION WIDTH CV 15.8 % (11.5-14.5); RED CELL DISTRIBUTION WIDTH SD 48.4 fL (36.4-46.3); WHITE BLOOD COUNT 6.75 K/uL (4.8-10.8)
[2017-12-16 14:01] LABS: ALT/SGPT 31 U/L (12-78); AST/SGOT 27 U/L (15-37); BLOOD UREA NITROGEN 12 mg/dl (7-18); CALCIUM 8.9 mg/dl (8.5-10.1); CARBON DIOXIDE 25 mmol/L (21-32); CHOLESTEROL 139 mg/dl (0-200); CREATININE 0.82 mg/dl (0.60-1.20); GLUCOSE 99 mg/dl (70-99); LDL CHOLESTEROL CALCULATED 52 mg/dl; POTASSIUM 4.3 mmol/L (3.5-5.1); SODIUM 138 mmol/L (136-145)
== END | disposition home or self-care (01) ==
LOC: C.LABMFLN 09:46
PROVIDERS: ATTEND Internal Medicine Cardiovascular Disease
DX: I25.10 Atherosclerotic heart disease of native coronary artery without angina pectoris (principal); E78.5 Hyperlipidemia, unspecified; I25.5 Ischemic cardiomyopathy; R07.89 Other chest pain; R00.2 Palpitations

== ENCOUNTER → 2017-12-20 | Outpatient (CLI) | payer OTHER ==
[2017-12-20 15:33] LABS: BASO % 0.4 %; BASO ABS # 0.03 K/uL (0-0.2); EOS % 1.7 %; EOS ABS # 0.12 K/uL (0-0.5); HEMATOCRIT 44.5 % (37-47); HEMOGLOBIN 14.7 g/dL (12.0-16.0); IG# 0.02 K/uL (0.00-0.02); LYMPH % 21.8 %; MEAN CELL VOLUME 84.1 fL (80-100); MEAN CORPUSCULAR HEMOGLOBIN 27.8 pg (25-34); MEAN PLATELET VOLUME 10.2 fL (7.4-10.4); MONO % 5.7 %; MONO ABS # 0.39 K/uL (0.11-0.59); NEUT % 70.1 %; NEUT ABS # 4.81 K/uL (1.4-6.5); PLATELET COUNT 310 K/uL (130-400); RED CELL DISTRIBUTION WIDTH CV 15.6 % (11.5-14.5); RED CELL DISTRIBUTION WIDTH SD 47.7 fL (36.4-46.3); WHITE BLOOD COUNT 6.87 K/uL (4.8-10.8)
[2017-12-20 15:41] LABS: PTT PATIENT 27.3 SECONDS (21.0-31.0)
[2017-12-20 16:12] LABS: HEMOGLOBIN A1C 6.2 % (4.5-5.6)
== END | disposition home or self-care (01) ==
LOC: C.CPL 12:00
DX: Z01.812 Encounter for preprocedural laboratory examination (principal)